=== PATIENT | male | born 2000 | race African-American/Black ===

== ENCOUNTER 2020-03-11 14:33 | Emergency (ER) | payer SELFPAY ==
[~2020-03-11] VITALS: Ht 172.7 cm; Wt 82.0 kg
[2020-03-11 16:04] VITALS: BP 133/68
== END 2020-03-11 16:05 | disposition home or self-care (01) ==
LOC: ER 14:33
DX: S61.252A Open bite of right middle finger without damage to nail, initial encounter (principal); W53.21XA Bitten by squirrel, initial encounter; Y93.89 Activity, other specified; Y92.89 Other specified places as the place of occurrence of the external cause
CPT/HCPCS: 99282